=== PATIENT | female | born 1965 | race Caucasian/White ===

== ENCOUNTER 2017-09-23 14:00 | Emergency (ER) | payer OTHER, BC ==
[~2017-09-23] VITALS: Ht 168.9 cm; Wt 77.7 kg
[~2017-09-23 14:00] MED LIST: ALEN70TA4 PO; CALC-354 PO; MULTTAB45 PO
[2017-09-23 14:02] VITALS: TEMP 36.8; Ht 168.9 cm; Wt 77.7 kg
[2017-09-23] MEDS ORDERED: MoRPHine SULFATE 10 MG/ML CARP/VIAL IM STA (14:11)
[2017-09-23] MEDS ORDERED: ONDANSETRON 4MG OD TAB PO ONE (14:15)
[2017-09-23 14:22] VITALS: O2SAT 99
--- NOTE | 2017-09-23 15:08 | DIAGNOSTIC IMAGING REPORT ---
L WRIST MIN 3 VIEWS ROUTINE CLINICAL HISTORY: Left wrist pain following fall. COMPARISON: None FINDINGS: There is a comminuted, displaced distal left radial metaphyseal fracture with intra-articular extension. Fracture is moderately displaced and angulated. This represents a Pinedo fracture. Associated soft tissue swelling is present. There is an acute mildly displaced fracture at the base of the ulnar styloid. Carpal bones appear intact. IMPRESSION: 1. Acute moderately displaced comminuted distal left radial fracture with intra-articular extension consistent with a Pinedo fracture. 2. Acute mildly displaced ulnar styloid fracture. 3. Marked lateral wrist soft tissue swelling. Electronically signed by: Desmond Mahmood M.D. 09/23/2017 3:07 PM Dictated Date/Time: 09/23/2017 3:04 PM
[2017-09-23] MEDS ORDERED: BUPIVACAINE 0.5 % 5 MG/1 ML MPF 30ML VIAL INFIL ONE (15:30)
[2017-09-23] MEDS ORDERED: LIDOCAINE/EPINEPHRINE 1% 20 ML VIAL INFIL ONE (15:30)
[2017-09-23] MEDS: LIDO/EPINEPHRINE/SOD BICARB 20 ML VIAL INFIL ONE ×2 (15:36→15:38)
[2017-09-23] MEDS: BUPIVACAINE 0.5 % 5 MG/1 ML MPF 30ML VIAL ONE ×2 (15:37→15:38)
[2017-09-23] MEDS ORDERED: OXYC-57 PO (16:01)
[2017-09-23 16:42] VITALS: BP 119/73; PULSE 83; O2SAT 96
--- NOTE | 2017-09-23 16:53 | EMERGENCY ROOM VISIT NOTE ---
ED Visit Note First contact with patient: 14:04 CHIEF COMPLAINT: Left wrist injury at work today HISTORY OF PRESENT ILLNESS: Patient is a [id number] 52-year-old white female who presents to the emergency department for evaluation of left wrist pain after a mechanical fall that occurred at work just prior to arrival. She tripped over some equipment that they have at the job site, and tried to catch herself on her extended left wrist. She had immediate onset of constant moderate pain and deformity with associated swelling and bruising in the left wrist. She notes some radiation of the pain up the forearm. There was no bleeding or laceration. She tried to secure the area with a magazine and applied ice. She rates her pain a 9/10. She states that her fingers feel cold. She reports a similar injury to the right wrist a 2 years ago which required surgical ORIF. She denies any elbow pain. REVIEW OF SYSTEMS:Review of systems as per HPI. All other systems reviewed were negative. 10 systems reviewed. PMH: Electronic medical records are reviewed and summarized as above/below. See Problem List. SOCIAL HISTORY: Patient lives at home. 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 She does not smoke. PHYSICAL EXAM: Vital Signs: Reviewed Nurse's notes. CONSTITUTIONAL: Patient is an uncomfortable-appearing 52-year-old white female who is awake and alert and in moderate distress due to her stated complaint. MUSCULOSKELETAL: Examination of the left forearm and show marked soft tissue swelling, with slight ecchymosis noted around the left wrist. There is an obvious deformity noted, however skin is intact without laceration or puncture wound. She is tender over the distal radius and the ulna, extending up the forearm slightly. There is no elbow joint effusion appreciated. No pain over the proximal radial head. She does not have any pain into the first metacarpal region. She can wiggle and move her fingers normally. Capillary refills less than 2 seconds. She reports slight diminished sensation to light touch over the hand and fingers. Radial and ulnar pulses are easily palpable. EMERGENCY DEPARTMENT COURSE: The patient was seen and examined as above. Old records were reviewed. She was given Zofran 4 mg ODT and morphine 10 mg IM. Left wrist x-rays were obtained, and consistent with a comminuted displaced intra-articular distal radius fracture, with associated ulnar styloid fracture. X-ray findings were discussed with the patient, and reviewed with the [facility]. Patient was seen by Fco Posey PA-C and Dr. Hutson. Closed reduction was performed at the bedside under hematoma block. Patient was splinted by orthopedics. Closed reduction x-rays were obtained. Please refer to orthopedic dictation for further information. Patient will require surgical intervention and is established with orthopedics at [facility]. She would like to follow up there. She will follow up with them as arranged by Worker's Compensation. Patient was reviewed with the PDMP, and there were no red flags noted. Medication reconciliation: I attest that I have personally reviewed the patient' s current medication list. Blood pressure screening: Patient was found to have a slightly elevated blood pressure due to circumstances. I do not believe that the patient requires hypertension monitoring. L WRIST MIN 3 VIEWS ROUTINE CLINICAL HISTORY: Left wrist pain following fall. COMPARISON: None FINDINGS: There is a comminuted, displaced distal left radial metaphyseal fracture with intra-articular extension. Fracture is moderately displaced and angulated. This represents a Pinedo fracture. Associated soft tissue swelling is present. There is an acute mildly displaced fracture at the base of the ulnar styloid. Carpal bones appear intact. IMPRESSION: 1. Acute moderately displaced comminuted distal left radial fracture with intra-articular extension consistent with a Pinedo fracture. 2. Acute mildly displaced ulnar styloid fracture. 3. Marked lateral wrist soft tissue swelling. Problem List Medical Problems: (1) Fracture of ulnar styloid Status: Resolved (2) Osteoporosis Status: Chronic (3) Traumatic closed displaced Colles' fracture of right radius Status: Resolved Surgical Problems: (1) Ankle fracture Status: Resolved (2) H/O arthroscopic knee surgery Status: Resolved (3) Wrist fracture, right Status: Resolved Current/Historical Medications Scheduled Calcium Carbonate-Cholecalcife (Caltrate 600+D), 1 TAB PO DAILY Multiple Vitamin (Multiple Vitamin), 1 TAB PO DAILY Scheduled PRN Oxycodone/Acetaminophen 5MG/325MG (Percocet 5MG/325MG), 1-2 TABS PO Q4 PRN for Pain Allergies Coded Allergies: NO KNOWN DRUG ALLERGIES (Verified Allergy, Unknown, none, 09/23/17) Aspirin (Unverified Adverse Reaction, Mild, SENSITIVITY-PT, 09/23/17) Vital Signs Date Time Temp Pulse Resp B/P (MAP) Pulse Ox O2 Delivery O2 Flow Rate FiO2 09/23/17 15:39 83 18 142/86 96 Room Air 09/23/17 14:22 99 Room Air 09/23/17 14:02 36.8 83 18 138/89 99 Room Air Medications Administered Medications (Trade) Dose Ordered Sig/Vishnu Route Start Time Stop Time Status Last Admin Dose Admin Ondansetron HCl (Zofran Odt) 4 mg ONE ONCE PO 09/23/17 14:15 09/23/17 14:16 DC 09/23/17 14:18 4 MG Morphine Sulfate (MoRPHine SULFATE INJ) 10 mg NOW STAT IM 09/23/17 14:11 09/23/17 14:12 DC 09/23/17 14:19 10 MG Departure Information Impression Primary Impression: Closed fracture of left distal radius and ulna Additional Impression: Work related injury Prescriptions Oxycodone/Acetaminophen 5MG/325MG (PERCOCET 5MG/325MG) Tab 1-2 TABS PO Q4 Y for Pain, #30 TAB For Initial Treatment Prov: Yvonne Au PA 09/23/17 Referrals Leslie Mobley C.R.N.PMikayla (PCP) Baltazar Hutson MD Patient Instructions [facility] Additional Instructions Percocet 5/325 mg: Take 1-2 pills every four hours for breakthrough pain. Avoid alcohol, operating machinery or dangerous equipment, working on ladders or roofs, DRIVING, or situations where being under the influence may be dangerous. It is recommended to use an onob-nuk-ffqapug stool softener such as Colace, 100mg twice daily while taking this medication to avoid constipation. Ibuprofen(Motrin, Advil) may be used for fever or pain. Use 600mg every six hours as needed. Take with food. Avoid using more than 2400mg in a 24 hour period. Do not use 2400mg per day for more than three consecutive days without physician direction. Prolonged inappropriate use can lead to stomach upset or ulcers. This medication can be taken if you need to drive, work, or perform activities which may be dangerous when taking narcotic pain medication. Ice compresses for 20 minutes at a time four times daily for 2-3 days. Use the sling as instructed. Remove your arm from the sling 4-6 times a day and move all the joints around to keep them loose. Rest and elevate your injury. Do not get the splint wet. If your splint feels excessively tight, you have worsening pain, develop numbness or tingling, or your digits appear blue, loosen the krishna wrap. Then reapply the krishna wrap gently without removing the splint. If your symptoms are not quickly relieved return to the ER for re- evaluation. Continue current medications. Return to the ER immediately for any numbness, tingling, severe pain, extreme swelling in the extremity or as needed. Follow-up with orthopedics at [facility] for further care and management. NO WORK UNTIL SEEN AND CLEARED TO RETURN BY ORTHOPEDICS. Problem Qualifiers Primary Impression: Closed fracture of left distal radius and ulna Encounter type: initial encounter Qualified Codes: S52.502A - Unspecified fracture of the lower end of left radius, initial encounter for closed fracture ; S52.602A - Unspecified fracture of lower end of left ulna, initial encounter for closed fracture
--- NOTE | 2017-09-23 17:02 | Orthopedic Consultation ---
Orthopedic Consultation Date of Consultation: Sep 23, 2017. Attending Physician: Baltazar Hutson MD Reason for Consultation: Left wrist injury (Fco Posey PA-C) History of Present Illness 52 y/o female right hand dominant patient of [facility] c/o left wrist pain s/p fall at work today. She admits to pain, swelling, deformity, and stiffness. No prior history to left upper extremity injury but did injure the right wrist in similar fashion, which required closed reduction by Dr. Gallo and referral to [facility] for an ORIF by Dr. Araujo. She reports some minor numbness and tingling in the fingers but overall reports full function. (Fco Posey PA-C) Past Medical/Surgical History Medical Problems: (1) Osteoporosis Status: Chronic (Fco Posey PA-C) Social History Smoking Status: Never Smoker (Fco Posey PA-C) Allergies Coded Allergies: NO KNOWN DRUG ALLERGIES (Verified Allergy, Unknown, none, 09/23/17) Aspirin (Unverified Adverse Reaction, Mild, SENSITIVITY-PT, 09/23/17) Home Medications Scheduled Calcium Carbonate-Cholecalcife (Caltrate 600+D), 1 TAB PO DAILY Multiple Vitamin (Multiple Vitamin), 1 TAB PO DAILY Scheduled PRN Oxycodone/Acetaminophen 5MG/325MG (Percocet 5MG/325MG), 1-2 TABS PO Q4 PRN for Pain Current Inpatient Medications Current Inpatient Medications Medications (Trade) Dose Ordered Sig/Vishnu Route Start Time Stop Time Status Last Admin Dose Admin Lidocaine/ Epinephrine (Xylocaine/Epine 1% Inj) 20 ml NOW ONCE INFIL 09/23/17 15:30 09/23/17 15:31 UNV Bupivacaine HCl (Marcaine 0.5% MPF Inj) 30 ml NOW ONCE INFIL 09/23/17 15:30 09/23/17 15:31 UNV (Fco Posey PA-C) Review of Systems Constitutional: No fever, No chills, No sweats, No weight loss, No weakness, No fatigue, No problem reported Eyes: No worsening of vision, No eye pain, No redness, No discharge, No diplopia, No problem reported ENT: No hearing loss, No unusual epistaxis, No nasal symptoms, No sore throat, No tinnitus, No dental problems, No trouble swallowing, No problem reported Respiratory: No cough, No sputum, No wheezing, No shortness of breath, No dyspnea on exertion, No dyspnea at rest, No hemoptysis, No problem reported Cardiovascular: No chest pain, No orthopnea, No PND, No edema, No claudication , No palpitations, No problem reported Abdomen: No pain, No nausea, No vomiting, No diarrhea, No constipation, No GI bleeding, No problem reported Musculoskeletal: + joint pain (left wrist), + swelling, No muscle pain, No calf pain, No problem reported Neurologic: + numbness/tingling (mild), No memory loss, No paralysis, No weakness, No vertigo, No balance problems, No problem reported Integumentary: + color change, + problem reported (swelling, bruising), No rash , No itch, No new/changing skin lesions, No bleeding (Fco Posey, PA-C) Physical Exam Date Time Temp Pulse Resp B/P (MAP) Pulse Ox O2 Delivery O2 Flow Rate FiO2 09/23/17 15:39 83 18 142/86 96 Room Air 09/23/17 14:22 99 Room Air 09/23/17 14:02 36.8 83 18 138/89 99 Room Air General Appearance: WD/WN, no apparent distress Head: normocephalic, atraumatic Eyes: normal inspection ENT: normal ENT inspection, hearing grossly normal Extremities/Musculoskelatal: + swelling, + pertinent finding (mild deformity distal radius left side, she is tender palpating the left wrist throughout, metacarpals and fingers are non-tender, elbow is atraumatic) Neurologic/Psych: no motor/sensory deficits (overally, motor function grossly intact, has some minor decreased sensatsion with light touch through the medial nerve distribution but overall can feel generalized palpation), alert, normal mood/affect, oriented x 3 Skin: warm/dry, no rash (Fco Posey, PA-C) LUE: 2+ Radial pulse. Slight decreased sensation all digits, following hematoma block. Motor to M/R/U/AIN/PIN intact after reduction. + swelling and bruising volar about the wrist. Skin intact. (Baltazar Hutson MD) Laboratory Results L WRIST MIN 3 VIEWS ROUTINE CLINICAL HISTORY: Left wrist pain following fall. COMPARISON: None FINDINGS: There is a comminuted, displaced distal left radial metaphyseal fracture with intra-articular extension. Fracture is moderately displaced and angulated. This represents a Pinedo fracture. Associated soft tissue swelling is present. There is an acute mildly displaced fracture at the base of the ulnar styloid. Carpal bones appear intact. IMPRESSION: 1. Acute moderately displaced comminuted distal left radial fracture with intra-articular extension consistent with a Pinedo fracture. 2. Acute mildly displaced ulnar styloid fracture. 3. Marked lateral wrist soft tissue swelling. (Fco Posey, [place]) Assessment & Plan Left distal radius fracture Plan: Lara was educated regarding today's findings. She was advised that a similar treatment course will be followed similar to her right wrist fracture, which includes a hematoma block with local anesthetic, traction with finger traps, closed reduction and splinting, and referral to [facility] for further evaluation and surgical services. The patient agreed to receive treatment today regarding her hematoma block, traction with finger traps, and closed reduction and splinting. A time out was performed, correct extremity and location identified and agreed upon. The hematoma block was utilized with Lidocaine 1% w/epi and Marcaine 0.5%. The skin was cleansed with Betadine x 2 and anesthetized with Ethyl Chloride. She tolerated the hematoma block well as I utilized a dorsal approach. The patient felt near immediate relief and had no discomfort while hanging from finger traps due to successful hematoma block. The patient was evaluated by Dr. Hutson as well, whom then performed a successful closed reduction. Post-reduction films where obtained, which revealed acceptable alignment of her left distal radius fracture. A well padded , well molded sugar tong splint was then applied to Lara's left upper extremity using 3 inch plaster with SERG wrap. It was not too tight or too loose and a sling was provided as well. The patient will be discharged home with a prescription of Percocet from the ER for pain control. She will ice and elevate accordingly and keep sling in place. Again, the patient is familiar with the next steps in her care due to her prior injury to her right wrist and contact [place] accordingly. If the patient experiences any worsening pain, swelling, numbness upon discharge from the ER she is notify the ER and/or [facility] On-Call service with potential return to the ER for further evaluation. The patient had no other questions or concerns. If so, notify [facility] at [phone], thank you. (Fco Posey, PA-C) Left comminuted and displaced intra-articular volar Heredia's fracture and essentially non-displaced Ulnar styloid fractures. I, Dr. Hutson, agree with the above findings and plan of care discussed with my PA. My PA under my direction performed the hematoma block and hung the patient in 10 lbs of traction. I was present for the reduction and placement of the well padded and molded sugar tongue splint. Post reduction portable radiographs showed improved alignment. The patient will ice, elevate the LUE. A sling was given. She was given cast care instructions and compartment syndrome warning signs. She will follow-up with Dr. Araujo within 7 days. (Baltazar Hutson MD)
--- NOTE | 2017-09-23 18:18 | DIAGNOSTIC IMAGING REPORT ---
L WRIST 2 VIEW CLINICAL HISTORY: 52 years-old Female presenting with LEFT WRIST, POST REDUCTION. TECHNIQUE: Frontal and lateral views of the left wrist were obtained. COMPARISON: 09/23/2017 at 2:46 PM. FINDINGS: Overlying plaster splint degrades evaluation of underlying osseous detail. Redemonstration of distal radial fracture with mild impaction and 8 mm of volar displacement of the distal fracture fragment and carpus. The degree of displacement has overall decreased from prior exam. No gross evidence of new malalignment. No significant angulation. Ulnar solid fracture again noted. IMPRESSION: Interval decrease in volar displacement of the distal fracture fragment and carpus. 8 mm of persistent displacement. Electronically signed by: Lonnie Brice M.D. 09/23/2017 6:17 PM Dictated Date/Time: 09/23/2017 6:12 PM
--- NOTE | 2017-09-24 08:35 | DIAGNOSTIC IMAGING REPORT ---
INTRAOPERATIVE RADIOGRAPHS CLINICAL HISTORY: Closed reduction of a left wrist fracture. Fluoroscopy time: 5 seconds. FINDINGS: 3 spot fluoroscopic views of the left wrist are correlated with radiographs dated 09/23/2017. Intraoperative images show closed reduction with casting of a distal radial metaphyseal fracture. An ulnar styloid fracture is also seen. IMPRESSION: Intraoperative images from closed reduction of a left wrist fracture as above. Electronically signed by: Killian Blair M.D. 09/24/2017 8:33 AM Dictated Date/Time: 09/24/2017 8:32 AM
== END 2017-09-23 17:58 | disposition home or self-care (01) ==
LOC: C.EDB 14:02 → C.EDD 17:58
DX: S52.502A Unspecified fracture of the lower end of left radius, initial encounter for closed fracture (principal); W18.09XA Striking against other object with subsequent fall, initial encounter; M81.0 Age-related osteoporosis without current pathological fracture; Z87.81 Personal history of (healed) traumatic fracture; Z98.890 Other specified postprocedural states

== ENCOUNTER → 2018-03-02 | Outpatient (CLI) | payer OTHER ==
[~2018-03-02] MED LIST changes: -ALEN70TA4 PO; +OXYC-57 PO
--- NOTE | 2018-03-02 14:10 | DIAGNOSTIC IMAGING REPORT ---
R RIBS UNILATERAL WITH PA CHEST CLINICAL HISTORY: Right-sided rib pain.Fall. COMPARISON STUDY: Chest 05/07/2006. FINDINGS: No pneumothorax. No pleural effusions. The heart is normal in size. Old, healed left-sided rib fractures. The lungs are clear. Question of subtle nondisplaced fracture within the right lateral fourth and fifth ribs. IMPRESSION: Question subtle nondisplaced fractures within the right lateral fourth and fifth ribs. Recommend correlation for point tenderness for confirmation. No pneumothorax. Electronically signed by: Bean Kilgore M.D. 03/02/2018 2:08 PM Dictated Date/Time: 03/02/2018 2:00 PM
== END | disposition home or self-care (01) ==
LOC: C.RAD1850 12:55
PROVIDERS: ATTEND Family Medicine
DX: R07.9 Chest pain, unspecified (principal)